=== PATIENT | female | born 1990 | race African-American/Black ===

== ENCOUNTER 2018-03-27 10:44 | Emergency (ER) | payer MEDICAID, OTHER ==
--- NOTE | 2018-03-27 10:57 | ED Physician Documentation ---
Female Urogenital Problems - HISTORIAN Historian: patient - HPI Stated Complaint: vaginal spotting Chief Complaint: Female Urogenital Problems Additional Information: Patient, 13 weeks gestation, presents to ED with vaginal spotting x 1 today. Patient states she recently moved from [place] and does not have flue lining dipper here, however, did see infusion nurse prior to moving with no reported complications. LMP January 13, 2018. 1, Para 2. . Denies any abdominal or back pain. Onset: hours (1) Severity: mild Location of Pain: denies: abdominal pain, pelvic pain, low back pain - Vaginal Bleeding Compared to Menstrual Periods: spotting. denies: passing clots, passing tissue LNMP (Last Known Menstrual Period): 01/13/18 : 2 Para: 1 Description of Menstrual: denies: abnormal period(s) - Associated Symptoms Urinary Symptoms: none Discharge: denies: vaginal discharge, odorous discharge - ROS CONST: denies: fever GI/: denies: nausea, vomiting CVS/RESP: denies: chest pain, shortness of breath EYES/ENT: none NEURO/PSYCH: denies: headache MS/SKIN/LYMPH: none - PAST HX Past History: none Other History: none Surgeries/Procedures: - SOCIAL HX Smoking History: non-smoker Alcohol Use: none Drug Use: none - FAMILY HX Family History: none - REVIEWED ASSESSMENTS Nursing Assessment Reviewed: Yes Vitals Reviewed: Yes Progress - Results/Orders Results/Orders: heart tones were found, however, rate could not be determined. ED Results Lab/Radiology - Orders Orders: ED Orders Category Date Time Status UA W/MICRO IF INDICATED Routine Lab 03/27/18 Uncollected URINE HCG Stat Lab 03/27/18 Uncollected Female Urogenital Problems - EXAM General Appearance: no acute distress, alert EENT: JAMES Neck: nml inspection Respiratory: no resp. distress, breath sounds nml. No: respiratory distress CVS: reg rate & rhythm, heart sounds normal Abdomen: soft, non-tender, no distention, nml bowel sounds. No: tenderness Rectal: deferred Back: No: CVA tenderness Skin: color nml, no rash, warm,dry Extremities: no edema Neuro: oriented X3 Discharge Clincal Impression: First trimester bleeding Clincal Impression: (Ruled Out): Vaginal spotting Referrals: Primary Doctor,No [Primary Care Provider] - 2 Days Additional Instructions: Patient was instructed to follow up with bus escort as soon as possible. No sexual intercourse until cleared by infusion nurse Condition: Stable Disposition: 01 HOME, SELF-CARE Decision to Admit: NO Date of Decison to Admit: 03/27/18 Decision Time: 11:37
[2018-03-27 11:19] VITALS: BP 119/80
[2018-03-27 11:53] LABS: APPEARANCE,URINE CLEAR (CLEAR); COLOR,URINE YELLOW (YELLOW); OCCULT BLOOD,URINE 2+ (NEGATIVE); PH URINE 5.5 (5.0 - 8.0); URINE HCG POSITIVE (NEGATIVE); UROBILINOGEN URINE 0.2 Eu (0.2-1.0)
== END 2018-03-27 11:40 | disposition home or self-care (01) ==
LOC: ED 10:44
DX: O26.851 Spotting complicating pregnancy, first trimester (principal)
CPT/HCPCS: 81002; 81025

== ENCOUNTER 2018-12-17 17:07 | Emergency (ER) | payer MEDICAID, OTHER ==
[2018-12-17 17:38] LABS: BASOPHILS % 0.5 % (0.0-1.5); NEUTROPHILS # 7.1 # k/uL (1.4-7.7)
--- NOTE | 2018-12-17 17:42 | ED Physician Documentation ---
Abdominal Pain - HISTORIAN Historian: patient - HPI Stated Complaint: R Abdominal pain Chief Complaint: Abdominal Pain Additonal Information: Patient presents to ED with RUQ pain. Patient states she had the pain on Saturday after eating dinner. And again today after eating lunch. She states the pain is sharp stabbing, 10/10, and radiated through to her back. She had 2 months ago. Onset: days ago (3) Duration: other (intermittent) Timing: still present Context: denies: out of country travel Severity: moderate Quality: sharp Associated Symptoms: nausea. denies: fever, vomiting Exacerbated by: food Relieved by: nothing - ROS CONST: no problems GI/: none CVS/RESP: denies: shortness of breath, hurts to breath EYES/ENT: none MS/SKIN/LYMPH: none NEURO/PSYCH: none - SOCIAL HX Smoking History: non-smoker Alcohol Use: none Drug Use: none - FAMILY HX Family History: none - PAST HX Past History: none Ischemic Bowel Risk Factors: none Other History: none Surgeries/Procedures: Home Medications: Ambulatory Orders Medication Instructions Recorded NK 12/17/18 Allergies/Adverse Reactions: Allergies Allergy/AdvReac Type Severity Reaction Status Date / Time No Known Allergies Allergy Verified 12/17/18 17:35 - VITAL SIGNS Vital Signs: Vital Signs Temp Pulse Resp BP Pulse Ox 96.2 F L 90 15 154/71 95 12/17/18 17:07 12/17/18 17:07 12/17/18 17:07 12/17/18 17:07 12/17/18 17:07 - REVIEWED ASSESSMENTS Nursing Assessment Reviewed: Yes Vitals Reviewed: Yes ED Results Lab/Radiology - Lab Results Lab Results: Lab Results 12/17/18 12/17/18 17:30 17:30 WBC 11.40 K/ul K/ul (4.00-12.00) RBC 4.34 M/ul M/ul (3.90-5.20) Hgb 13.4 g/dL g/dL (11.5-16.0) Hct 38.9 % % (34.5-46.5) MCV 90.0 fl fl (80.0-100.0) MCH 30.8 pg pg (28.0-34.0) MCHC 34.3 g/dL g/dL (30.0-36.0) RDW 13.2 % % (11.3-14.3) Plt Count 258 K/mm3 K/mm3 (130-400) Neut % (Auto) 61.8 % % (39.0-79.0) Lymph % (Auto) 27.3 % % (16.0-50.0) [place] % (Auto) 7.1 % % (0.0-11.0) Eos % (Auto) 3.3 % % (0.0-6.8) Baso % (Auto) 0.5 % % (0.0-1.5) Neut # (Auto) 7.1 # k/uL # k/uL (1.4-7.7) Lymph # (Auto) 3.1 # k/uL # k/uL (0.6-4.0) [place] # (Auto) 0.8 # k/uL # k/uL (0.0-0.9) Eos # (Auto) 0.4 # k/uL # k/uL (0.0-0.6) Baso # (Auto) 0.1 # k/uL # k/uL (0.0-0.5) Sodium 141 mmol/L mmol/L (137-145) Potassium 4.0 mmol/L mmol/L (3.5-5.1) Chloride 105 mmol/L mmol/L (98-107) Carbon Dioxide 27 mmol/L mmol/L (22-30) Anion Gap 13.0 mmol/L H mmol/L (3-11) BUN 21 mg/dL H mg/dL (7-17) Creatinine 0.59 mg/dL mg/dL (0.52-1.04) Estimated Creat Clear 282 Est GFR ( Amer) > 60 (60 - ) Est GFR (Non-Af Amer) > 60 (60 - ) Glucose 116 mg/dL H mg/dL (74-106) Calcium 9.7 mg/dL mg/dL (8.4-10.2) Total Bilirubin 0.2 mg/dL mg/dL (0.2-1.3) AST 47 U/L H U/L (15-46) ALT 59 U/L U/L (13-69) Alkaline Phosphatase 95 U/L U/L (38-126) Total Protein 8.0 g/dL g/dL (6.3-8.2) Albumin 4.7 g/dL g/dL (3.5-5.0) - Radiology Radiology Impressions: Report Submission Date: Dec 17, 2018 6:47:17 PM CDT Patient Study Name: MARK CHARLES Date: Dec 17, 2018 5:57:47 PM CDT Modality Type: CT\SR Gender: F Description: CT ABD PELVIS W/ CON : 89 Institution: [facility] Physician: CARLOS LOPEZ CT abdomen and pelvis with intravenous contrast HISTORY Right upper quadrant pain TECHNIQUE Images through the abdomen and pelvis were obtained following intravenous contrast administration. FINDINGS The lung bases, liver, gallbladder, spleen, pancreas, kidneys and adrenal glands are normal. There is no hydronephrosis, hydroureter, free intraperitoneal air, fluid or adenopathy. There is no bowel obstruction. The appendix is normal. The uterus is grossly normal. The aorta enhances normally. IMPRESSION Normal. Electronically signed on Dec 17, 2018 6:47:17 PM CDT by: Damien Mohamud - Orders Orders: ED Orders Category Date Time Status Place IV Lock 1T Care 12/17/18 18:[address] ABD & PELVIS W/ CON Stat Exams 12/17/18 Taken CBC/PLATELET/DIFF Routine Lab 12/17/18 17:30 Completed CMP Routine Lab 12/17/18 17:30 Completed UA W/MICRO IF INDICATED Routine Lab 12/17/18 17:22 Ordered URINE HCG Stat Lab 12/17/18 17:35 Ordered Morphine Sulfate Med 12/17/18 17:44 Discontinued 5 mg .ROUTE .STK-MED ONE Morphine Sulfate Med 12/17/18 17:43 Discontinued 5 mg IV NOW ONE Abdominal Pain Physical Exam - Physical Exam General Appearance: no acute distress, alert EENT: JAMES NECK: supple. No: lymphadenopathy RESPIRATORY: no resp distress, chest non-tender, breath sounds normal CVS: reg rate & rhythm, heart sounds normal ABDOMEN: soft, tenderness (RUQ) BACK: no CVA tenderness SKIN: warm/dry, normal color EXTREMITIES: non-tender NEURO: oriented X3 Vital Signs: Vital Signs Temp Pulse Resp BP Pulse Ox 96.2 F L 90 15 154/71 95 12/17/18 17:07 12/17/18 17:07 12/17/18 17:07 12/17/18 17:07 12/17/18 17:07 Discharge Clincal Impression: Biliary colic Referrals: Primary Doctor,No [Primary Care Provider] - 2 Days Additional Instructions: 1. [place] as needed for pain 2. Zofran 4mg every 8 hours as needed for nausea 3. Follow up with PCP within 1 week. You will need an Ultrasound to further evaluate gall bladder 4. Call [phone] to make an appointment with [facility] 5. Return to ER for new or worsening symptoms Condition: Stable Disposition: 01 HOME, SELF-CARE Decision to Admit: NO Date of Decison to Admit: 12/17/18 Decision Time: 18:59
[2018-12-17] MEDS ORDERED: MORPHINE SULFATE 5 MG/ML ML IV ONE (17:43)
[2018-12-17] MEDS ORDERED: MORPHINE SULFATE 5 MG/ML ML ONE (17:44)
[2018-12-17 17:49] LABS: eGFR (Non-African) > 60
[2018-12-17 19:19] VITALS: BP 138/74
--- NOTE | 2018-12-18 05:39 | Diagnostic Imaging Report ---
CARLOS LOPEZ [facility] [address] [facility] [place] [facility] [address], [place]. [id number] Report Submission Date: Dec 17, 2018 6:47:17 PM CDT Patient Study Name: MARK CHARLES Date: Dec 17, 2018 5:57:47 PM CDT Modality Type: CT\SR Gender: F Description: CT ABD PELVIS W/ CON : 89 Institution: [facility] Physician: CARLOS LOPEZ CT abdomen and pelvis with intravenous contrast HISTORY Right upper quadrant pain TECHNIQUE Images through the abdomen and pelvis were obtained following intravenous contrast administration. FINDINGS The lung bases, liver, gallbladder, spleen, pancreas, kidneys and adrenal glands are normal. There is no hydronephrosis, hydroureter, free intraperitoneal air, fluid or adenopathy. There is no bowel obstruction. The appendix is normal. The uterus is grossly normal. The aorta enhances normally. IMPRESSION Normal. Electronically signed on Dec 17, 2018 6:47:17 PM CDT by: Damien HECTOR
[2018-12-18 06:37] LABS: APPEARANCE,URINE CLEAR (CLEAR); COLOR,URINE YELLOW (YELLOW); OCCULT BLOOD,URINE NEGATIVE (NEGATIVE); PH URINE 5.5 (5.0 - 8.0); URINE HCG NEGATIVE (NEGATIVE); UROBILINOGEN URINE 0.2 Eu (0.2-1.0)
== END 2018-12-17 19:15 | disposition home or self-care (01) ==
LOC: ED 17:07
DX: K80.20 Calculus of gallbladder without cholecystitis without obstruction (principal)
CPT/HCPCS: 74177; 80053; 81002; 81025; 85025; 96372; 99283; 99284; Q9967; S1016